=== PATIENT | female | born 1980 | race Caucasian/White ===

== ENCOUNTER 2017-07-06 12:24 | Emergency (ER) | payer MEDICAID ==
[2017-07-06 12:50] VITALS: BP 133/73
--- NOTE | 2017-07-06 14:09 | EDM.PDOC ---
ED HPI GENERAL MEDICAL PROBLEM - General Chief Complaint: Lower Extremity Injury/Pain Time Seen by Provider: 07/06/17 12:50 Source of Information: Reports: Patient History Limitations: Reports: No Limitations - History of Present Illness INITIAL COMMENTS - FREE TEXT/NARRATIVE: pt arrived because she is concerned that the bruising in the left lower leg is moving lower. Onset: Gradual Duration: Day(s): Location: Denies: Other (pt injured her left leg 1 week ago nd she developeda hematoma. ) Associated Symptoms: Reports: No Other Symptoms, Other (solo in the leg when she movwes it and when she trys to sleep. ) - Related Data Allergies Allergy/AdvReac Type Severity Reaction Status Date / Time duloxetine [From Cymbalta] Allergy Depression Verified 07/06/17 12:54 hydrocodone Allergy Hives Verified 07/23/15 14:25 NSAIDS (Non-Steroidal Allergy Other Verified 07/06/17 12:54 Anti-Inflamma Home Meds: Home Meds Montelukast [Singulair] 10 mg PO BEDTIME 04/21/14 [History] Albuterol Sulfate [Proair Hfa] 2 puff INH ASDIRECTED PRN 06/08/14 [History] Ca Carbonate/Vitamin D3/Vit K [Calcium + D Soft Chewable Tab] 1 each PO BID [History] Cholecalciferol (Vitamin D3) [Vitamin D] 5,000 unit PO DAILY 07/05/14 [History] Multivitamin [Chewable Multi Vitamin] 1 each PO BID 07/05/14 [History] Vitamin B Complex [B Complex] 1 each PO DAILY 08/26/14 [History] Venlafaxine [Effexor XR] 150 mg PO BEDTIME 04/13/15 [History] Ferrous Fumarate [Ferrous Fumarate] 1 tab PO BEDTIME 06/19/15 [History] hydrOXYzine HCl [hydrOXYzine] 07/06/17 [History] Past Medical History Other Cardiovascular History: Slow valve Other Gastrointestinal History: Last BM 9-3 PM, Abd girth 47" Social & Family History - Tobacco Use Smoking Status *Q: Never Smoker Years of Tobacco use: 10 Used Tobacco, but Quit: Yes Month Tobacco Last Used: 8 years Second Hand Smoke Exposure: No - Alcohol Use Days Per Week of Alcohol Use: 0 - Recreational Drug Use Recreational Drug Use: No Review of Systems - Review of Systems Review Of Systems: See Below Constitutional: Reports: No Symptoms Eyes: Reports: No Symptoms Ears: Reports: No Symptoms Nose: Reports: No Symptoms Mouth/Throat: Reports: No Symptoms Respiratory: Reports: No Symptoms Cardiovascular: Reports: No Symptoms GI/Abdominal: Reports: No Symptoms Musculoskeletal: Reports: Other (pain and swelling in the left lower leg. ) ED EXAM, GENERAL - Physical Exam Exam: See Below Free Text/Narrative:: pt arrived with increased bruising which is moving down the leg swellg from an injury to the leg 1 week ago. Exam Limited By: No Limitations General Appearance: Alert, Anxious Ears: Normal TMs Nose: Nasal Deformity Throat/Mouth: Normal Inspection Head: Atraumatic Extremities: Other (left leg is swollen and bruied. She had developed a hematoma just below the knee) Neurological: Alert, Oriented Course - Vital Signs Last Recorded V/S: Last Vital Signs Temp 36.1 C 07/06/17 13:01 Pulse 72 07/06/17 13:01 Resp 18 07/06/17 13:01 BP 133/73 07/06/17 13:01 Pulse Ox 100 07/06/17 13:01 - Orders/Labs/Meds Orders: Active Orders 24 hr Category Date Time Status VL Duplex Lwr Ext Veins Ltd Lt [US] Stat Exams 07/06/17 12:58 Taken - Re-Assessments/Exams Free Text/Narrative Re-Assessment/Exam: 07/06/17 14:27 pt had an Us of the leg which was neg for dvt. Departure - Departure Time of Disposition: 14:07 Disposition: Home, Self-Care 01 Condition: Fair Clinical Impression: Traumatic hematoma of left lower leg - Discharge Information Referrals: Jonatan Rees MD [Primary Care Provider] - Forms: ED Department Discharge Care Plan Goals: soak in a tub twice daily in warm water, elevate the leg, tylenol 3 1-2 tabs has to help sleep and control discomfort. - My Orders Last 24 Hours: My Active Orders 07/06/17 12:58 VL Duplex Lwr Ext Veins Ltd Lt [US] Stat - Assessment/Plan Last 24 Hours: My Active Orders 07/06/17 12:58 VL Duplex Lwr Ext Veins Ltd Lt [US] Stat
--- NOTE | 2017-07-08 08:38 | US ---
VL Duplex Lwr Ext Veins Ltd Lt INDICATION: tender swollen leg. FINDINGS: Ultrasound examination of the lower extremity using Doppler and compressive technique demon strates that the common femoral, femoral, and popliteal veins are patent, and negative for thrombus. The calf veins were segmentally visualized and are negative where seen. IMPRESSION: Negative for deep venous thrombosis.
== END 2017-07-06 14:16 | disposition home or self-care (01) ==
LOC: JP.ED 12:24
DX: S80.12XA Contusion of left lower leg, initial encounter (principal); Z88.8 Allergy status to other drugs, medicaments and biological substances; Z79.899 Other long term (current) drug therapy; Z88.6 Allergy status to analgesic agent; W19.XXXA Unspecified fall, initial encounter
CPT/HCPCS: 93971-26-LT; 93971-LT; 99284-25

== ENCOUNTER 2017-07-14 15:05 | Emergency (ER) | payer MEDICAID ==
[2017-07-14] MEDS ORDERED: Acetaminophen 325 MG Tab PO ONE (15:37)
--- NOTE | 2017-07-14 15:38 | EDM.PDOC ---
ED HPI GENERAL MEDICAL PROBLEM - General Chief Complaint: Fever Stated Complaint: HIGH FEVER,SORE THROAT, BODY ACHES Time Seen by Provider: 07/14/17 15:33 Source of Information: Reports: Patient History Limitations: Reports: No Limitations - History of Present Illness INITIAL COMMENTS - FREE TEXT/NARRATIVE: With fever since Saturday. Was quite high yesterday. Up to 105. Today with fever, headache, sore throat, cough and body ache. Onset: Gradual Onset Date: 07/12/17 Duration: Getting Worse Quality: Reports: Ache Severity: Mild Improves with: Reports: None Worsens with: Reports: None Associated Symptoms: Reports: Cough, Fever/Chills, Headaches, Loss of Appetite - Related Data Allergies Allergy/AdvReac Type Severity Reaction Status Date / Time duloxetine [From Cymbalta] Allergy Depression Verified 07/14/17 15:20 hydrocodone Allergy Hives Verified 07/14/17 15:20 NSAIDS (Non-Steroidal Allergy Other Verified 07/14/17 15:20 Anti-Inflamma Home Meds: Home Meds Montelukast [Singulair] 10 mg PO BEDTIME 04/21/14 [History] Albuterol Sulfate [Proair Hfa] 2 puff INH ASDIRECTED PRN 06/08/14 [History] Ca Carbonate/Vitamin D3/Vit K [Calcium + D Soft Chewable Tab] 1 each PO BID [History] Cholecalciferol (Vitamin D3) [Vitamin D] 5,000 unit PO DAILY 07/05/14 [History] Multivitamin [Chewable Multi Vitamin] 1 each PO BID 07/05/14 [History] Vitamin B Complex [B Complex] 1 each PO DAILY 08/26/14 [History] Venlafaxine [Effexor XR] 150 mg PO BEDTIME 04/13/15 [History] Ferrous Fumarate [Ferrous Fumarate] 1 tab PO BEDTIME 06/19/15 [History] hydrOXYzine HCl [hydrOXYzine] 1 tab PO TID PRN 07/06/17 [History] Past Medical History Other Cardiovascular History: Slow valve Other Gastrointestinal History: Last BM 9-3 PM, Abd girth 47" Social & Family History - Tobacco Use Smoking Status *Q: Never Smoker Years of Tobacco use: 10 Used Tobacco, but Quit: Yes Month Tobacco Last Used: 8 years Second Hand Smoke Exposure: No - Alcohol Use Days Per Week of Alcohol Use: 0 - Recreational Drug Use Recreational Drug Use: No ED ROS ENT - Review of Systems Review Of Systems: See Below Constitutional: Reports: Fever, Chills, Weakness, Decreased Appetite HEENT: Reports: Throat Pain Respiratory: Reports: Cough Cardiovascular: Reports: No Symptoms GI/Abdominal: Reports: No Symptoms Skin: Reports: No Symptoms Neurological: Reports: Headache ED EXAM, ENT - Physical Exam Exam: See Below Exam Limited By: No Limitations General Appearance: Alert, Lethargic, Moderate Distress Ears: Normal External Exam, Normal Canal, Hearing Grossly Normal, Normal TMs Nose: Normal Inspection, Normal Mucousa, No Blood Mouth/Throat: Muffled Voice, Pharyngeal Erythema, Throat Pain Head: Atraumatic, Normocephalic Neck: Normal Inspection, Supple, Non-Tender, Full Range of Motion Respiratory/Chest: No Respiratory Distress, Lungs Clear, Normal Breath Sounds, No Accessory Muscle Use, Chest Non-Tender Cardiovascular: Normal Peripheral Pulses, Regular Rate, Rhythm, No Edema, No Gallop, No JVD, No Murmur, No Rub Course - Vital Signs Last Recorded V/S: Last Vital Signs Temp 100.6 F 07/14/17 16:49 Pulse 80 07/14/17 16:49 Resp 16 07/14/17 16:49 BP 120/65 07/14/17 16:49 Pulse Ox 97 07/14/17 16:49 - Orders/Labs/Meds Orders: Active Orders 24 hr Category Date Time Status CULTURE STREP A CONFIRMATION [RM] Stat Lab 07/14/17 15:41 Results STREP SCRN A RAPID W CULT CONF [RM] Stat Lab 07/14/17 15:41 Results Labs: Laboratory Tests 07/14/17 07/14/17 07/14/17 Range/Units 15:56 15:56 15:56 WBC 6.3 (4.5-11.0) K/uL RBC 4.22 (3.30-5.50) M/uL Hgb 10.9 L (12.0-15.0) g/dL Hct 32.7 L (36.0-48.0) % MCV 78 L (80-98) fL MCH 26 L (27-31) pg MCHC 33 (32-36) % Plt Count 137 L (150-400) K/uL Neut % (Auto) 82 H (36-66) % Lymph % (Auto) 9 L (24-44) % [place] % (Auto) 8 H (2-6) % Eos % (Auto) 0 L (2-4) % Baso % (Auto) 0 (0-1) % Sodium 135 L (140-148) mmol/L Potassium 3.9 (3.6-5.2) mmol/L Chloride 101 (100-108) mmol/L Carbon Dioxide 27 (21-32) mmol/L Anion Gap 10.9 (5.0-14.0) mmol/L BUN 6 L D (7-18) mg/dL Creatinine 0.8 (0.6-1.0) mg/dL Est Cr Clr Drug Dosing 84.95 mL/min Estimated GFR (MDRD) > 60 (>60) Glucose 102 (74-106) mg/dL Calcium 8.3 L (8.5-10.1) mg/dL Monoscreen Negative (NEGATIVE) Meds: Medications Discontinued Medications Generic Name Dose Route Start Last Admin Trade Name Brandi PRN Reason Stop Dose Admin Acetaminophen 650 mg 07/14/17 15:37 07/14/17 16:08 Tylenol PO 07/14/17 15:38 650 mg NOW ONE Administration Sodium Chloride 1,000 mls @ 999 drops/sec 07/14/17 16:23 07/14/17 16:41 Normal Saline IV 07/14/17 16:24 999 drops/sec .BOLUS ONE Administration Departure - Departure Time of Disposition: 17:37 Disposition: Home, Self-Care 01 Condition: Fair Clinical Impression: Viral illness Fever Qualifiers: Fever type: due to other condition Qualified Code(s): R50.81 - Fever presenting with conditions classified elsewhere - Discharge Information Referrals: Jonatan Rees MD [Primary Care Provider] - Forms: ED Department Discharge Additional Instructions: Rapid strep negative. Culture pending. CBC indicates anemia, viral illness. Irion testing negative. BMP shows dehydration. IV NS 1000ml infused. Tylenol 650mg po given for fever. May continue Tylenol as needed for fever. Encouraged hydration. Followup if symptoms worsen or persist or concerns about dehydration. - Problem List & Annotations (1) Fever SNOMED Code(s): 058996998 Code(s): R50.9 - FEVER, UNSPECIFIED Status: Acute Priority: Medium Current Visit: Yes Qualifiers: Fever type: due to other condition Qualified Code(s): R50.81 - Fever presenting with conditions classified elsewhere (2) Viral illness SNOMED Code(s): 63310628 Code(s): B34.9 - VIRAL INFECTION, UNSPECIFIED Status: Acute Priority: Low Current Visit: Yes - My Orders Last 24 Hours: My Active Orders 07/14/17 15:41 CULTURE STREP A CONFIRMATION [RM] Stat STREP SCRN A RAPID W CULT CONF [] Stat - Assessment/Plan Last 24 Hours: My Active Orders 07/14/17 15:41 CULTURE STREP A CONFIRMATION [RM] Stat STREP SCRN A RAPID W CULT CONF [] Stat
[2017-07-14] MEDS ORDERED: Sodium Chloride 0.9% 1,000 ML IV ONE (16:23)
[2017-07-14 16:50] VITALS: BP 120/65
== END 2017-07-14 18:00 | disposition home or self-care (01) ==
LOC: JP.ED 15:05
DX: B34.9 Viral infection, unspecified (principal); Z87.891 Personal history of nicotine dependence; Z79.899 Other long term (current) drug therapy; Z88.5 Allergy status to narcotic agent; Z88.8 Allergy status to other drugs, medicaments and biological substances
CPT/HCPCS: 36415; 80048; 85025; 86308; 87081; 87430; 96360; 99284; A9270; J7040

== ENCOUNTER 2017-10-06 11:30 | Emergency (ER) | payer MEDICAID ==
[2017-10-06 11:41] VITALS: BP 124/55
--- NOTE | 2017-10-06 12:18 | EDM.PDOC ---
ED HPI GENERAL MEDICAL PROBLEM - General Chief Complaint: General Stated Complaint: FEELING FAINT Time Seen by Provider: 10/06/17 12:16 Source of Information: Reports: Patient, Family History Limitations: Reports: No Limitations - History of Present Illness INITIAL COMMENTS - FREE TEXT/NARRATIVE: pt was in the store today and she suddenly felt warm and she felt like she was going to pass out. She is 16 weeks . She has never carried a preg this far in the past. She has had 2 miscarriages and 1 tubal preg. She has a adopted child. Onset: Today Duration: Hour(s): Location: Reports: Head Associated Symptoms: Reports: Other (pt had a near syncopal episode. ) - Related Data Allergies Allergy/AdvReac Type Severity Reaction Status Date / Time duloxetine [From Cymbalta] Allergy Depression Verified 07/14/17 15:20 hydrocodone Allergy Hives Verified 07/14/17 15:20 NSAIDS (Non-Steroidal Allergy Other Verified 07/14/17 15:20 Anti-Inflamma Home Meds: Home Meds Montelukast [Singulair] 10 mg PO BEDTIME 04/21/14 [History] Albuterol Sulfate [Proair Hfa] 2 puff INH ASDIRECTED PRN 06/08/14 [History] Ca Carbonate/Vitamin D3/Vit K [Calcium + D Soft Chewable Tab] 1 each PO BID [History] Cholecalciferol (Vitamin D3) [Vitamin D] 5,000 unit PO DAILY 07/05/14 [History] Multivitamin [Chewable Multi Vitamin] 1 each PO BID 07/05/14 [History] Vitamin B Complex [B Complex] 1 each PO DAILY 08/26/14 [History] Venlafaxine [Effexor XR] 150 mg PO BEDTIME 04/13/15 [History] Ferrous Fumarate [Ferrous Fumarate] 1 tab PO BEDTIME 06/19/15 [History] hydrOXYzine HCl [hydrOXYzine] 1 tab PO TID PRN 07/06/17 [History] Past Medical History Other Cardiovascular History: Slow valve Other Gastrointestinal History: Last BM 9-3 PM, Abd girth 47" [employer] History: Reports: Endocrine/Metabolic History: Reports: Other (See Below) Other Endocrine/Metabolic History: states that 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 - Infectious Disease History Infectious Disease History: Reports: Chicken Pox - Past Surgical History HEENT Surgical History: Reports: Tonsillectomy GI Surgical History: Reports: Appendectomy, Cholecystectomy, Other (See Below) Other GI Surgeries/Procedures: gastric by pass in 05/2014 Social & Family History - Tobacco Use Smoking Status *Q: Never Smoker Years of Tobacco use: 10 Used Tobacco, but Quit: Yes Month Tobacco Last Used: 8 years Second Hand Smoke Exposure: No - Caffeine Use Caffeine Use: Reports: Coffee - Alcohol Use Days Per Week of Alcohol Use: 0 - Recreational Drug Use Recreational Drug Use: No ED ROS GENERAL - Review of Systems Review Of Systems: See Below Constitutional: Reports: No Symptoms HEENT: Reports: No Symptoms Respiratory: Reports: No Symptoms Cardiovascular: Reports: No Symptoms Endocrine: Reports: No Symptoms GI/Abdominal: Reports: No Symptoms : Reports: No Symptoms Musculoskeletal: Reports: No Symptoms Skin: Reports: No Symptoms Neurological: Reports: Other (pt had a near syncopal episode this am. She is feeling better now. She has had a previous gastric bypass. ) ED EXAM, GENERAL - Physical Exam Exam: See Below Free Text/Narrative:: pt was at the store and felt lite headed today. She is feeling better now. Orthostatic bps were obtained which showed a slight drop in her bp. She did not drink alot of fluids today. Exam Limited By: No Limitations General Appearance: Alert, No Apparent Distress, Anxious Ears: Normal TMs Nose: Normal Inspection Throat/Mouth: Normal Inspection Head: Atraumatic Neck: Normal Inspection Respiratory/Chest: No Respiratory Distress Cardiovascular: Regular Rate, Rhythm, Other GI/Abdominal: Soft, Non-Tender (Female) Exam: Other ( pt is 16 weeks and she has good heart tones at 150. She has not vomited since has been here. She has been up to the br and she is doing well. She has been pushing fluids while she is here. ) Rectal (Female) Exam: Deferred Back Exam: Normal Inspection Extremities: Normal Inspection Neurological: Alert, Oriented, Normal Cognition, Other ( she is feeling better at this time. ) Course - Vital Signs Last Recorded V/S: Last Vital Signs Temp 36.1 C 10/06/17 11:46 Pulse 70 10/06/17 11:46 Resp 18 10/06/17 11:46 BP 124/55 L 10/06/17 11:46 Pulse Ox 93 L 10/06/17 11:46 Orthostatic Blood Pressure [ 104/59 Sitting] Orthostatic Blood Pressure [ 122/66 Standing] Orthostatic Blood Pressure [ 117/46 Supine] - Orders/Labs/Meds Labs: Laboratory Tests 10/06/17 10/06/17 10/06/17 Range/Units 12:26 12:26 12:47 WBC 7.0 (4.5-11.0) K/uL RBC 4.70 (3.30-5.50) M/uL Hgb 12.8 (12.0-15.0) g/dL Hct 37.6 (36.0-48.0) % MCV 80 (80-98) fL MCH 27 (27-31) pg MCHC 34 (32-36) % Plt Count 182 (150-400) K/uL Neut % (Auto) 74 H (36-66) % Lymph % (Auto) 19 L (24-44) % [place] % (Auto) 6 (2-6) % Eos % (Auto) 0 L (2-4) % Baso % (Auto) 0 (0-1) % Sodium 137 L (140-148) mmol/L Potassium 4.2 (3.6-5.2) mmol/L Chloride 104 (100-108) mmol/L Carbon Dioxide 26 (21-32) mmol/L Anion Gap 11.2 (5.0-14.0) mmol/L BUN 7 (7-18) mg/dL Creatinine 0.7 (0.6-1.0) mg/dL Est Cr Clr Drug Dosing 97.09 mL/min Estimated GFR (MDRD) > 60 (>60) Glucose 81 (74-106) mg/dL Calcium 8.4 L (8.5-10.1) mg/dL Total Bilirubin 0.3 (0.2-1.0) mg/dL AST 11 L (15-37) U/L ALT 19 (12-78) U/L Alkaline Phosphatase 65 (46-116) U/L Total Protein 6.5 (6.4-8.2) g/dL Albumin 3.1 L (3.4-5.0) g/dL Globulin 3.4 (2.3-3.5) g/dL Albumin/Globulin Ratio 0.9 L (1.2-2.2) Urine Color Yellow Urine Appearance Clear Urine pH 5.0 (4.5-8.0) Ur Specific [place] 1.020 (1.008-1.030) Urine Protein Negative (NEGATIVE) mg/dL Urine Glucose (UA) Normal (NEGATIVE) mg/dL Urine Ketones Negative (NEGATIVE) mg/dL Urine Occult Blood Negative (NEGATIVE) Urine Nitrite Negative (NEGATIVE) Urine Bilirubin Small (NEGATIVE) Urine Urobilinogen Normal (NORMAL) mg/dL Ur Leukocyte Esterase Negative (NEGATIVE) Urine RBC 0-5 (0-5) Urine WBC 0-5 (0-5) Ur Epithelial Cells Few Amorphous Sediment Not seen Urine Bacteria Few Urine Mucus Not seen - Re-Assessments/Exams Free Text/Narrative Re-Assessment/Exam: 10/06/17 13:15 pt has normal labs. She has good heart tones. She has no pain and no spotting. Departure - Departure Time of Disposition: 13:16 Disposition: Home, Self-Care 01 Condition: Fair Clinical Impression: Postural hypotension, 16 weeks gestation of , Gastric bypass status for obesity - Discharge Information Instructions: Orthostatic Hypotension Referrals: Jonatan Rees MD [Primary Care Provider] - Forms: ED Department Discharge Care Plan Goals: push fluids, rest today and get extra fluids in.
== END 2017-10-06 13:30 | disposition home or self-care (01) ==
LOC: JP.ED 11:30
DX: O26.52 Maternal hypotension syndrome, second trimester (principal); Z3A.16 16 weeks gestation of pregnancy; Z98.84 Bariatric surgery status; Z79.899 Other long term (current) drug therapy; Z88.8 Allergy status to other drugs, medicaments and biological substances; Z88.6 Allergy status to analgesic agent
CPT/HCPCS: 36415; 80053; 81001; 85025; 99283